=== PATIENT | male | born 1945 | race Caucasian/White ===

== ENCOUNTER → 2019-01-20 | Outpatient (CLI) | payer MEDICARE, OTHER ==
[~2019-01-20] MED LIST: ACTONEL150 MG; ALLEGRA-D 24 H1 EACH PO; AMARYL4 MG PO; ASPIR 8181 MG PO; BENZTROPINE ME0.5 MG; CALCIUM 500 +1 EAC5 PO; CALCIUM CITRAT1 EA14; CARDIZEM CD240 MG; CIPRO500 MG PO; CLONAZEPAM 1 MG1 M1 PO; COREG25 MG PO; FISH OIL 1,001000 M2 PO; FLAGYL500 MG PO; FLONASE 0.05%50 MCG NASAL; IRON325 PO; LESCOL XL80 MG; MAGOX 400400 MG PO; METFORMIN HCL500 MG; METFORMIN HCL500 MG PO; MULTIVITAMINS1 EAC7 PO; NAPROSYN500 MG PO; NORCO 5-325 TA1 EACH PO; PIOGLITAZONE15 MG PO; POTASSIUM PO; PRILOSEC OTC20 MG PO; SIMVASTATIN40 MG PO; UROXATRAL10 MG PO; VICTOZA0.6 MG/0.1 SUBQ; VITAMIN B12-FO1 EAC1; ZESTRIL40 MG
--- NOTE | 2019-01-20 14:53 | 2DMMODE ---
[place] [address] 2 D/M-MODE ECHOCARDIOGRAM Name: SIMÓN MALLORY Jourdan Room: [facility]#: [id number] Admission: 01/20/19 Attend Phys: Romulo Walters Discharge: Date of : 45 Date of Service: 01/20/19 1453 Report #: [id number] THIS REPORT FOR: //name// APPROVED REPORT Study performed: 01/20/2019 13:46:20 EXAM: Comprehensive 2D, Doppler, and color-flow Echocardiogram Patient Location: Out-Patient BSA: 2.19 HR: 72 bpm BP: 140/80 mmHg Other Information Study Quality: Fair Indications Hypertension/HDD SVT 2D Dimensions IVSd: 10.08 (7-11mm) LVOT Diam: 20.85 (18-24mm) LVDd: 46.57 mm PWd: 8.45 (7-11mm) Ascending Ao: 34.64 (22-36mm) LVDs: 25.63 (25-40mm) Aortic Root: 33.72 mm Volumes Left Atrial Volume (Systole) LA ESV Index: 18.90 mL/m2 Aortic Valve AoV Peak Darío.: 1.38 m/s AO Peak Gr.: 7.63 mmHg LVOT Max P.69 mmHg AO Mean Gr.: 4.86 mmHg LVOT Mean P.40 mmHg LVOT Max V: 1.29 m/s AO V2 VTI: 26.87 cm LVOT Mean V: 0.85 m/s ZUNILDA (VTI): 3.31 cm2 LVOT V1 VTI: 26.01 cm Mitral Valve E/A Ratio: 0.61 MV Decel. Time: 360.52 ms MV E Max Darío.: 0.59 m/s MV PHT: 104.55 [place] [address] 2 D/M-MODE ECHOCARDIOGRAM Name: SIMÓN MALLORY Room: [facility]#: [id number] Admission: 01/20/19 Attend Phys: Romulo Walters Discharge: Date of : 45 Date of Service: 01/20/19 1453 Report #: [id number] MVA (PHT): 2.10 cm2 TDI E/Lateral E': 5.36 E/Medial E': 9.83 Medial E' Darío.: 0.06 m/s Lateral E' Darío.: 0.11 m/s Pulmonary Valve PV Peak Darío.: 0.88 m/s PV Peak Gr.: 3.10 mmHg Tricuspid Valve RAP Estimate: 5.00 mmHg TR Peak Gr.: 22.10 mmHg RVSP: 27.10 mmHg PA Pressure: 27.10 mmHg Left Ventricle The left ventricle is normal size. There is normal LV segmental wall motion. There is normal left ventricular wall thickness. Left ventricular systolic function is normal. LVEF is 55-60%. Grade I - abnormal relaxation pattern. Right Ventricle The right ventricle is normal size. The right ventricular systolic function is normal. Atria The left atrium size is normal. The right atrium size is normal. Aortic Valve Aortic valve is mildly calcified. No aortic regurgitation is present. There is no aortic valvular stenosis. Mitral Valve The mitral valve is normal in structure. There is no mitral valve regurgitation noted. No evidence of mitral valve stenosis. Tricuspid Valve The tricuspid valve is normal in structure. Mild tricuspid regurgitation. No pulmonary hypertension. Pulmonic Valve The pulmonary valve is normal in structure. Mild pulmonic regurgitation. [place] [address] 2 D/M-MODE ECHOCARDIOGRAM Name: MOHAMUDSIMÓN Room: [facility]#: [id number] Admission: 01/20/19 Attend Phys: Romulo Walters Discharge: Date of : 45 Date of Service: 01/20/19 1453 Report #: [id number] The aortic root is normal in size. IVC is normal in size and collapses >50% with inspiration. Pericardium There is no pericardial effusion. <Conclusion> The left ventricle is normal size. There is normal left ventricular wall thickness. Left ventricular systolic function is normal. LVEF is 55-60%. Grade I - abnormal relaxation pattern. Mild tricuspid regurgitation. No pulmonary hypertension. IVC is normal in size and collapses >50% with inspiration. <ELECTRONICALLY SIGNED> By: Romaine Lui MD, FACC 01/20/19 1453 1453 1453 Romaine Lui MD, FACC /INF
== END ==
LOC: M.CRD 13:46
DX: I08.8 Other rheumatic multiple valve diseases (principal); I47.1 Supraventricular tachycardia; I10 Essential (primary) hypertension